=== PATIENT | female | born 2000 | race African-American/Black ===

== ENCOUNTER 2025-10-18 16:16 | Emergency (ER) | payer OTHER, MEDICAID ==
[~2025-10-18] VITALS: Ht 160 cm; Wt 59.0 kg
[2025-10-18 16:31] VITALS: O2SAT 100
[2025-10-18] MEDS: ACETAMINOPHEN 325MG TABLET PO ONE (18:40)
[2025-10-18] MEDS: LIDOCAINE 5% PATCH TOP SCH ×2 (18:40→19:36)
[2025-10-18] MEDS ORDERED: IBUP-1455 MT (19:22)
[2025-10-18] MEDS ORDERED: LIDO-53 TP (19:22)
[2025-10-18] MEDS ORDERED: CYCL10TA21 MT (19:22)
[2025-10-18] MEDS: KETOROLAC 15MG/ML VIAL IM ONE (19:36)
[2025-10-18 19:39] VITALS: BP 102/62; PULSE 72; RESP 16; TEMP 37.2; O2SAT 100
== END 2025-10-18 19:45 | disposition home or self-care (01) ==
LOC: ER 16:16
DX: S06.9X0A Unspecified intracranial injury without loss of consciousness, initial encounter (principal); R07.89 Other chest pain; M54.9 Dorsalgia, unspecified; F12.90 Cannabis use, unspecified, uncomplicated; V89.2XXA Person injured in unspecified motor-vehicle accident, traffic, initial encounter; Y93.89 Activity, other specified; Y92.410 Unspecified street and highway as the place of occurrence of the external cause; Y99.8 Other external cause status
CPT/HCPCS: 81025; 71111; 72070; 72100; 70450; 96372; 99285; J1885; Z7610; A6449; A4565